=== PATIENT | female | born 1980 | race Caucasian/White ===

== ENCOUNTER 2020-10-02 14:08 | Emergency (ER) | payer OTHER, SELFPAY ==
[2020-10-02 14:09] VITALS: PULSE 73; RESP 16; O2SAT 100
[2020-10-02 14:18] VITALS: BP 124/75; PULSE 72; RESP 16; TEMP 36.9; O2SAT 100
--- NOTE | 2020-10-02 14:19 | ED.ALLEREA ---
HPI - Allergic Reaction General Chief complaint: Allergic Reaction Stated complaint: allegric reaction Time Seen by Provider: 10/02/20 14:10 Source: patient Mode of arrival: ambulatory Limitations: no limitations History of Present Illness HPI narrative: Xi Arvizu is a 40 yo female with no PMH who started on a diet a few days ago and ate almonds felt kind of funny repeated that today and developed some chest tightness, throat tight, itchy, abdominal tightness and nausea. [place] like she needed to throw up after she ate them. Second time in a couple of days had eaten almonds, firts time was nauseated, this time had this reaction. Is a normal prescription for notes with no reaction Related Data Allergies Allergy/AdvReac Type Severity Reaction Status Date / Time No Known Allergies Allergy Unverified 05/01/17 16:44 Review of Systems Review of Systems: Narrative: CONSTITUTIONAL: Denies fever, chills, sweats. Anxious EYES: Denies visual changes, redness, discharge. ENT: Denies rhinorrhea, congestion, sore throat, otalgia. Throat feels tight CARDIOVASCULAR: Denies chest pain, palpitations, edema. RESPIRATORY: Denies dyspnea, wheezing, cough-feels like there is scratchy GASTROINTESTINAL: Denies abdominal pain, nausea, vomiting, diarrhea. GENITOURINARY: Denies dysuria, hematuria, abnormal discharge SKIN: Denies rash or itching. No rash NEUROLOGIC: Denies numbness, or focal weakness. PSYCHIATRIC: Denies anxiety or depression. PMFSH Past Medical History Medical History No acute medical problems Family History Family History Mother Depression Father Hypertension Other Cerebrovascular accident Diabetes mellitus Family history of allergic disorder Family history of elevated blood lipids Family history of malignant neoplasm Social History Social History Smoking status: Current every day smoker Smoking end date: 06/19/08 Alcohol intake: current Comments At time of signature, I agree with nursing past medical, surgical, social and family history. There is no relevant family history pertinent to the presenting complaint. Exam Narrative: Exam Narrative: GENERAL: This is a well-nourished, well-developed patient, in mild distress. HEAD: normocephalic, atraumatic. EYES: Sclera clear/white. Vision is grossly intact. EARS: External ears normal,. Hearing grossly intact. NOSE: External nose normal without nasal discharge, nares without redness, no rhinorrhea. THROAT: Mucous membranes moist, posterior pharynx -no narrowing of airway no lip swelling no lesions in oral mucosa NECK: Neck supple, non-tender CARDIOVASCULAR: Regular rate and rhythm without murmurs, gallops, or rubs. RESPIRATORY: Clear to auscultation. Breath sounds equal bilaterally. No wheezes, rales, or rhonchi. GASTROINTESTINAL: Abdomen soft, SKIN: warm, intact with no suspicious lesions or rash, good texture and turgor. NEURO: awake, alert, and oriented to person, place and time. There were no obvious focal neurologic abnormalities. Steady gait EXTREMITIES: Normal range of motion. BACK: Nontender without deformity Course Course Emergency Course: Patient comes to [facility] with concerns about allergic reaction to almonds that she is eaten an hour prior to starting to feel sick Patient given prednisone, Benadryl, Pepcid. Initial vital signs within normal limits with 100% O2 sats, repeated Now complaining of chest pain - ekg, zofran, and toradol given Vital Signs Vital signs: Vital Signs Pulse Rate 73 10/02/20 14:09 Respiratory Rate 16 10/02/20 14:09 Pulse Oximetry 100 10/02/20 14:09 Temperature 98.5 F 10/02/20 14:18 Pulse Rate 76 10/02/20 15:24 Respiratory Rate 16 10/02/20 14:58 Blood Pressure 115/75 10/02/20 15:24 Pulse Oximetry 100
[2020-10-02] MEDS: predniSONE 20 MG TABLET 60 MG PO (14:26)
[2020-10-02 14:58] VITALS: BP 107/69; PULSE 72; RESP 16; O2SAT 100
[2020-10-02] MEDS: diphenhydrAMINE HCl CAP 25 MG CAPSULE PO (14:58)
[2020-10-02] MEDS: FAMOTIDINE 20 MG TABLET PO (14:58)
[2020-10-02 15:24] VITALS: BP 115/75; PULSE 76; O2SAT 100
--- NOTE | 2020-10-02 16:00 | ECG_ITS ---
Measurements Intervals [place] Rate: 82 P: 34 [place]: 121 QRS: 54 QRSD: 97 T: 60 QT: 393 QTc: 459 Interpretive Statements SINUS RHYTHM INCOMPLETE RIGHT BUNDLE BRANCH BLOCK BASELINE ARTIFACT- II, III, AVF BORDERLINE ECG Electronically Signed On 10-03-2020 8:34:11 CDT by Montrell Bustos D.O.
--- NOTE | 2020-10-02 16:00 | PC.NURSE ---
ekg done at 1558.
--- NOTE | 2020-10-02 16:01 | PC.NURSE ---
1548 upon dc stated upper chest was hurting more. this rn and job coaching at bedside. job coaching ordered ekg, zofran, and toradol. moved to rm 1.
[2020-10-02] MEDS: ONDANSETRON HCL ODT 4 MG TABLET PO (16:09)
[2020-10-02] MEDS: KETOROLAC (*BKC) 60 MG/2 ML VIAL IM (16:09)
--- NOTE | 2020-10-02 16:45 | PC.NURSE ---
was reassessed at 1630 and stated no difference since medication. cont. to have intermittent abd. cramping and upper chest discomfort. bp 119/69, hr 72, pulse ox 100%ra, resp 16 and nonlabored.
== END 2020-10-02 16:50 | disposition home or self-care (01) ==
PROVIDERS: Emergency Provider Nurse Practitioner
DX: T78.1XXA Other adverse food reactions, not elsewhere classified, initial encounter (principal); R07.89 Other chest pain; R10.9 Unspecified abdominal pain; R11.0 Nausea; I45.10 Unspecified right bundle-branch block
CPT/HCPCS: 93005; 96372; 99213; A9270; G0463; J1885; J7512

== ENCOUNTER 2022-07-13 05:01 | Emergency (ER) | payer OTHER, SELFPAY ==
--- NOTE | ~2022-07-13 | XR_ITS ---
Clinical Indication: Shortness of breath, cough PA and lateral views of the chest: Comparison: 03/25/2016 Findings: The lungs are clear, without evidence of focal consolidation or pleural effusion. Cardiome diastinal silhouette is within normal limits. Bones and soft tissues are unremarkable. Impression: Normal chest. Reviewed, dictated and finalized at location . TOP BOLTER Impression: Normal chest.
[2022-07-13 05:04] VITALS: BP 118/72; PULSE 116; RESP 18; TEMP 37.7; O2SAT 99
--- NOTE | 2022-07-13 05:21 | ED.GENADULT ---
HPI - General Adult General Chief complaint: Upper Respiratory Infection <James Kothari MD - Last Filed: 07/13/22 06:43> Stated complaint: cough <James Kothari MD - Last Filed: 07/13/22 06:43> Time Seen by Provider: 07/13/22 05:13 <James Kothari MD - Last Filed: 07/13/22 06:43> History of Present Illness HPI narrative: Patient is a 42-year-old female who presents ER with cough and burning when she breathes and to her chest. She reports that she has been sick for 2 weeks. Started off with sinus congestion and sore throat. It then moved into her chest. She reports everybody in her house had influenza the time. She reports she coughed up some blood and something that was dark earlier. No sharp pleuritic pain with breathing. Concerned she may have developed pneumonia. Patient also concerned that she has a hoarse voice related to this.. <James Kothari MD - Last Filed: 07/13/22 06:43> Related Data Allergies/adverse reactions: Allergies Allergy/AdvReac Type Severity Reaction Status Date / Time No Known Allergies Allergy Unverified 07/13/22 05:07 <James Kothari MD - Last Filed: 07/13/22 06:43> Review of Systems Review of Systems: All systems reviewed & are unremarkable except as noted in HPI and below <James Kothari MD - Last Filed: 07/13/22 06:43> Constitutional: Constitutional: Reports chills, Reports fatigue and Reports fever(s) <James Kothari MD - Last Filed: 07/13/22 06:43> ENT: Reports nasal congestion and Reports sore throat <James Kothari MD - Last Filed: 07/13/22 06:43> Cardiovascular: Cardiovascular: Denies chest pain, Denies rapid heart rate and Denies radiating jaw, neck or arm pain <James Kothari MD - Last Filed: 07/13/22 06:43> Respiratory: Respiratory: Reports cough, Reports dyspnea and Denies wheezing <James Kothari MD - Last Filed: 07/13/22 06:43> Gastrointestinal: Gastrointestinal: Denies abdominal pain, Denies nausea and Denies vomiting <James Kothari MD - Last Filed: 07/13/22 06:43> PMFSH Past Medical History Medical History: Medical History (Updated 07/13/22 @ 07:38 by Leland Paez MD) Anxiety Kidney stones <James Kothari MD - Last Filed: 07/13/22 06:43> Surgical History Surgical History: Surgical History (Updated 07/13/22 @ 05:24 by James Kothari MD) History of umbilical hernia repair <James Kothari MD - Last Filed: 07/13/22 06:43> Family History Family History: Family History Mother Depression Father Hypertension Other Cerebrovascular accident Diabetes mellitus Family history of allergic disorder Family history of elevated blood lipids Family history of malignant neoplasm <James Kothari MD - Last Filed: 07/13/22 06:43> Social History Social History: Social History Smoking status: Current every day smoker Smoking end date: 06/19/08 Alcohol intake: current <James Kothari MD - Last Filed: 07/13/22 06:43> Exam Narrative: GENERAL: Well-appearing, well-nourished, and in no acute distress. HEAD: Normocephalic, atraumatic. ENT: Mucous membranes moist. TMs normal bilaterally. No tonsillar hypertrophy or exudate. Uvula midline and nonedematous. CHEST: Clear to auscultation. No respiratory distress. HEART: Tachycardic regular. Normal peripheral pulses. EXTREMITIES: Normal range of motion. No edema. NEURO: Alert and oriented x3. PSYCH: Normal mood and affect. <James Kothari MD - Last Filed: 07/13/22 06:43> Course Reevaluation(s) Reevaluation #1: Tachycardia improved with fluids. Patient also given GI cocktail for burning in her throat and Toradol for headache. Patient amenable to COVID/flu testing at this time so will be performed. Additionally patient is requesting a breathing treatment. <Seferino
[2022-07-13] MEDS: SODIUM CHLORIDE 0.9% IV 1,000 ML 999 ML IV CONT (05:33)
[2022-07-13 05:43] LABS: Basophils Percent Auto 0.4 % (0.2-1.2); Eosinophils Percent Auto 0.2 % (0-4.4); Hematocrit 38.3 % (37.0-47.0); Hemoglobin 12.8 g/dL (12.0-15.0); Immature Granulocyte Absolute 0.01 K/mm3 (0.00-0.031); Immature Granulocyte Percent A 0.2 % (0-0.5); Lymphocytes Percent Auto 10.5 % (18.3-44.2); Mean Corpuscular HGB Conc 33.4 g/dl (32-36); Mean Corpuscular Hemoglobin 30.2 pg (26-34); Mean Corpuscular Volume 90.3 fl (80-100); Mean Platelet Volume 10.2 fl (7.4-10.4); Monocytes Absolute Auto 0.7 K/mm3 (0.1-0.6); Monocytes Percent Auto 14.7 % (2.6-8.5); Neutrophils Absolute Auto 3.5 K/mm3 (1.3-6.7); Platelet Count Result 188 k/mm3 (150-375); Red Blood Count 4.24 M/mm3 (4.2-5.4); Red Cell Distribution Width 13.3 % (11.5-14.5); White Blood Count 4.8 K/mm3 (4.5-10.0)
[2022-07-13 05:47] LABS: Appearance Urine Clear (Clear); Bilirubin Urine Negative (Negative); Blood Urine Negative (Negative); Color Urine Yellow (Yellow); Glucose Urine UA Negative (Negative); Ketones Urine Negative (Negative); Leukocyte Esterase Ur Negative LEU/UL (Negative); Nitrate Urine Negative (Negative); Protein Urine 1+ mg/dL (Negative); Urobilinogen Urine 0.2 mg/dL (<2.0)
[2022-07-13 05:52] LABS: Mucus Urine Rare /lpf; RBC Urine 0-2 /hpf (0-2); Squamous Epithelial Cell Urine Few /hpf (Few)
[2022-07-13 05:53] LABS: Anion Gap 6 mmol/L (8-16); Blood Urea Nitrogen 11 mg/dL (7-17); Calcium 8.4 mg/dL (8.4-10.2); Carbon Dioxide 24 mmol/L (22-30); Chloride 109 mmol/L (98-107); Estimated CRCL calculation 78 ml/min; Estimated Glomerular Filt Rate > 60; Glucose 98 mg/dL (65-110); Lactic Acid Reflex 0.7 mmol/L (0.7-2.0); Potassium 3.9 mmol/L (3.4-5.0); Sodium 139 mmol/L (137-145)
[2022-07-13 05:54] LABS: Add Urine Microscopic? YES
[2022-07-13] MEDS: BELLADONNA ALK/PHENOB ELIX 10 ML, MAG HYDROX/ALUMINUM HYD/SIMETH 30 ML, LIDOCAINE HCL 2... PO (06:10)
[2022-07-13] MEDS: KETOROLAC 30 MG/ML VIAL (*BKC) IV PUSH (06:10)
[2022-07-13 06:17] VITALS: BP 123/75; O2SAT 100
[2022-07-13 06:32] VITALS: BP 117/76; O2SAT 97
[2022-07-13] MEDS: IPRATROPIUM BR 0.02% INH SOLN 0.5 MG/2.5 ML VIAL INHALATION (07:04)
[2022-07-13] MEDS: ALBUTEROL SULFATE NEB 2.5 MG/3 ML INH 5 MG INHALATION (07:04)
[2022-07-13 07:06] VITALS: PULSE 84; RESP 20
[2022-07-13 07:28] VITALS: PULSE 112; RESP 20
[2022-07-13 07:31] LABS: Influenza A QL RT-PCR Negative (Negative); Influenza B QL RT-PCR Negative (Negative); SARS-CoV-2 RNA PCR Positive
[2022-07-13] MEDS: ACETAMINOPHEN 500 MG TABLET 1000 MG PO (07:37)
[2022-07-13 07:47] VITALS: BP 114/68; PULSE 108; RESP 16; O2SAT 100
== END 2022-07-13 07:49 | disposition home or self-care (01) ==
PROVIDERS: Emergency Provider Emergency Medicine; PCP Family Medicine
DX: U07.1 COVID-19 (principal); F41.9 Anxiety disorder, unspecified
CPT/HCPCS: 36415; 71046; 80048; 81001; 83605; 85025; 87636; 94640; 96361; 96374; 99284; A9270; J1885; J7030

== ENCOUNTER 2023-05-03 12:45 | Outpatient (CLI) | payer OTHER, SELFPAY ==
--- NOTE | ~2023-05-03 | MMUS_ITS ---
EXAMINATION: MM diagnostic roberto BI w warner, US breast LT limited HISTORY: Left breast pain TECHNIQUE: Craniocaudal, mediolateral, and mediolateral oblique 3-D tomosynthesis images of the breas ts were performed and synthetic 2-D images were generated. CAD analysis was submitted and interpreted . High resolution limited left breast ultrasound was performed. COMPARISON: None, baseline BREAST PARENCHYMAL COMPOSITION: The breasts are heterogeneously dense, which may obscure small masses . FINDINGS: MAMMOGRAPHIC FINDINGS: No suspicious mass, calcification, or architectural distortion are identified in either breast to sug gest malignancy. No mammographic correlate is identified for the patient's reported left breast pain. ULTRASOUND: No sonographic correlate is identified for the patient's reported left breast pain. No abscess is izabella ntified. IMPRESSION: 1. No specific mammographic or sonographic correlate is identified for the patient's left breast pain . Further evaluation at this time should be based on clinical assessment. Continued follow-up physica l examination is recommended. 2. Recommend routine screening mammography in one year. BI-RADS Category 1: Negative Reviewed, dictated and finalized at location A. SUPPORT TECHNICIAN IMPRESSION: 1. No specific mammographic or sonographic correlate is identified for the hernandez ent's left breast pain. Further evaluation at this time should be based on clin ical assessment. Continued follow-up physical examination is recommended. 2. Recommend routine screening mammography in one year. BI-RADS Category 1: Negative
== END 2023-05-03 12:46 | disposition home or self-care (01) ==
LOC: ANHIMG 12:48
PROVIDERS: Visit Provider Obstetrics & Gynecology
DX: N64.4 Mastodynia (principal)
CPT/HCPCS: 76642; 77062; 77066; G0279

== ENCOUNTER 2024-01-14 21:19 | Emergency (ER) | payer OTHER, SELFPAY ==
--- NOTE | ~2024-01-14 | XR_ITS ---
XR chest 2V Ordering provider: Suresh Salinas MD History: 43 years Female with . chest pain . Comparison: July 13, 2022 FINDINGS: MEDIASTINUM: The cardiac silhouette is not enlarged. LUNGS: No infiltrates, effusions or pneumothorax. OTHER: No free air under the diaphragm. IMPRESSION: No acute cardiopulmonary pathology Reviewed, dictated and finalized at location A.
--- NOTE | 2024-01-14 21:23 | ECG_ITS ---
Test Date: 2024-01-14 21:30:42 Measurements Intervals [place] Rate: 88 P: 52 SD: 104 QRS: 23 QRSD: 101 T: 44 QT: 375 QTc: 456 Interpretive Statements SINUS RHYTHM INCOMPLETE RIGHT BUNDLE BRANCH BLOCK BASELINE ARTIFACT- II, III, AVR, AVL, AVF, V2 BORDERLINE ECG No previous ECG available for comparison Electronically Signed On 01-15-2024 06:12:25 CDT by Montrell Bustos D.O.
[2024-01-14 21:24] VITALS: BP 140/88; PULSE 82; RESP 15; TEMP 36.6; O2SAT 100
--- NOTE | 2024-01-14 21:32 | ED.CHESTPAIN ---
HPI - Chest Pain General Chief Complaint: Chest Pain Stated Complaint: chest pain and left arm pain, nausea, chills Time Seen by Provider: 01/14/24 21:30 Source: patient Mode of arrival: ambulatory Limitations: no limitations History of Present Illness HPI narrative: Xi is a 43-year-old female patient presenting to the ER today with complaint midsternal chest pain that comes and goes, left arm pain, nausea, and chills. She reports that she has been dry heaving. symptoms started 2-3 hours prior to arrival. States the chest discomfort is a pressure like pain and the arm pain is sharp and in the shoulder and scapula. She denies lifting anything heavy or working out recently. Denies any URI symptoms or cough. Denies GERD symptoms. Patient does have a history of anxiety. No cardiac history. Related Data Allergies Allergy/AdvReac Type Severity Reaction Status Date / Time No Known Allergies Allergy Verified 01/14/24 21:19 Review of Systems Review of Systems: Pertinent positives per HPI. Patient denies any fever, chills, rash, headache, visual changes, dizziness, cough, runny nose, sore throat, shortness of breath, chest pain, palpitations, nausea, vomiting, diarrhea, constipation, abdominal pain, or any urinary issues. PMFSH Past Medical History Medical History Anxiety Kidney stones Surgical History Surgical History History of umbilical hernia repair Family History Family History Mother Depression Father Hypertension Other Cerebrovascular accident Diabetes mellitus Family history of allergic disorder Family history of elevated blood lipids Family history of malignant neoplasm Social History Social History Smoking status: Current every day smoker Smoking end date: 06/19/08 Alcohol intake: current Comments At the time of my signature, I reviewed and agree with the nursing past medical, surgical, social, and family history. There is no relevant family history pertinent to the patient complaint. Exam Narrative: General: Well-developed, well nourished, in no apparent distress Head: Normocephalic, atraumatic. Cardio: Regular rate and rhythm, s1 and s2 normal, no murmur appreciated. Resp: Clear to auscultation bilaterally, no rhonchi, rales, wheezing or rubs. Extremities: No deformity, no edema, no cyanosis, capillary refill less than 2 seconds, peripheral pulses palpable and strong. Integumentary: [place], warm, and dry, intact without lesion, no rashes. Course Course Emergency Course: Portions of this record may have been created with voice recognition software. Vital Signs Vital signs: Vital Signs Temperature 36.6 C 01/14/24 21:24 Pulse Rate 82 01/14/24 21:24 Respiratory Rate 15 01/14/24 21:24 Blood Pressure 140/88 01/14/24 21:24 Pulse Oximetry 100 01/14/24 21:24 Oxygen Delivery Room Air 01/14/24 21:24 Temperature 36.6 C 01/14/24 21:24 Pulse Rate 82 01/14/24 21:24 Respiratory Rate 15 01/14/24 21:24 Blood Pressure 140/88 01/14/24 21:24 Pulse Oximetry 100 01/14/24 21:24 Oxygen Delivery Room Air 01/14/24 21:24 Vital signs reviewed MDM - Chest Pain MDM Narrative Medical decision making narrative: At the time of visit patient is resting comfortably on the exam table. Patient appears to be nontoxic. EKG: EKG shows sinus rhythm with an incomplete right bundle-branch block heart rate 88 beats per minute. No ST elevation, depression, or T-wave inversion. Repeat EKG shows no acute changes Labs: CBC shows white blood cell count of 8.5, H and H of 13.9 and 40.8, platelet count is 285, anticoagulation states within normal limits, chemistry shows sodium 136, potassium of 3.2, chloride 101, carbon dioxi
[2024-01-14 21:43] LABS: Basophils Absolute Auto 0.1 K/mm3 (0.0-0.1); Basophils Percent Auto 0.7 % (0.2-1.2); Eosinophils Absolute Auto 0.2 K/mm3 (0-0.3); Eosinophils Percent Auto 2.5 % (0-4.4); Hematocrit 40.8 % (37.0-47.0); Hemoglobin 13.9 g/dL (12.0-15.0); Immature Granulocyte Absolute 0.02 K/mm3 (0.00-0.031); Immature Granulocyte Percent A 0.2 % (0-0.5); Lymphocytes Percent Auto 31.8 % (18.3-44.2); Mean Corpuscular HGB Conc 34.1 g/dl (32-36); Mean Corpuscular Hemoglobin 30.2 pg (26-34); Mean Corpuscular Volume 88.7 fl (80-100); Mean Platelet Volume 10.2 fl (7.4-10.4); Monocytes Absolute Auto 0.5 K/mm3 (0.1-0.6); Monocytes Percent Auto 6.2 % (2.6-8.5); Neutrophils Percent Auto 58.6 % (45.5-73.1); Platelet Count Result 285 k/mm3 (150-375); Red Cell Distribution Width 13.2 % (11.5-14.5); White Blood Count 8.5 K/mm3 (4.5-10.0)
[2024-01-14 21:55] LABS: Alanine Aminotransferase 22 U/L (6-35); Albumin Level 4.7 g/dL (3.5-5.1); Alkaline Phosphatase 68 U/L (38-126); Anion Gap 10 mmol/L (4-12); Aspartate Amino Transferase 24 U/L (14-36); Bilirubin,Total 0.4 mg/dL (0.2-1.3); Blood Urea Nitrogen 13 mg/dL (7-17); Calcium 10.2 mg/dL (8.4-10.2); Carbon Dioxide 25 mmol/L (22-30); Chloride 101 mmol/L (98-107); Estimated CRCL calculation 70 ml/min; Estimated Glomerular Filt Rate > 60; Glucose 93 mg/dL (65-110); INR 0.9; Lipase 175 U/L (23-300); Potassium 3.2 mmol/L (3.4-5.0); Prothrombin Time 12.8 Seconds (11.1-14.7); Sodium 136 mmol/L (137-145)
[2024-01-14 21:56] LABS: Partial Thromboplastin Time 25.4 Seconds (22.3-36.8)
[2024-01-14] MEDS: ONDANSETRON INJ 4 MG/2 ML VIAL IV PUSH (22:03)
[2024-01-14 22:06] LABS: Troponin I < 0.012 ng/mL (0.000-0.034)
[2024-01-15] MEDS: POTASSIUM CHLORIDE 20 MEQ PACKET (FOR LIQUID) 40 MEQ PO (00:03)
[2024-01-15] MEDS: ONDANSETRON INJ 4 MG/2 ML VIAL IV PUSH (00:49)
[2024-01-15 01:06] LABS: Troponin I < 0.012 ng/mL (0.000-0.034)
--- NOTE | 2024-01-15 01:19 | ECG_ITS ---
Test Date: 2024-01-15 01:13:19 Measurements Intervals [place] Rate: 78 P: 0 [place]: 146 QRS: 36 QRSD: 94 T: 31 QT: 365 QTc: 416 Interpretive Statements SINUS RHYTHM INCOMPLETE RIGHT BUNDLE BRANCH BLOCK BORDERLINE ECG Compared to ECG 01/14/2024 21:30:42 NO SIGNIFICANT CHANGE Electronically Signed On 01-15-2024 06:11:35 CDT by Montrell Bustos D.O.
[2024-01-15 01:31] VITALS: BP 120/76; PULSE 80; RESP 19; O2SAT 99
== END 2024-01-15 01:45 | disposition home or self-care (01) ==
PROVIDERS: Student in an Organized Health Care Education/Training Program; Emergency Provider Nurse Practitioner Family
DX: R07.89 Other chest pain (principal); F41.9 Anxiety disorder, unspecified; E87.6 Hypokalemia; Z87.442 Personal history of urinary calculi
CPT/HCPCS: 36415; 71046; 80053; 83690; 84484; 85025; 85610; 85730; 93005; 96374; 96375; 99284; A9270; J2405

== ENCOUNTER 2024-10-25 12:52 | Outpatient (CLI) | payer OTHER, SELFPAY ==
--- NOTE | ~2024-10-25 | CT_ITS ---
Non-contrast CT scan of the Abdomen Clinical indication: Periumbilical pain Technique: 2.5 mm axial scans were obtained through the abdomen without intravenous or oral contrast . Dose reduction technique was used on this scan by utilizing automated exposure control and iterativ e reconstruction technique. The dose-length product (DLP) was 249.44 mGy-cm. COMPARISON: 04/03/2017 Findings: Images through the lung bases reveal stable 4 mm left basilar pulmonary nodule. There is no evidence of renal or ureteral calculi. The kidneys and the ureters are nondilated. The liver, spleen, pancreas, gallbladder, and adrenals appear normal. There is no aortic aneurysm. Visualized bowel loops are unremarkable. No ascites. Impression: Unremarkable exam. Reviewed, dictated and finalized at location . Impression: Unremarkable exam.
--- OUTSIDE RECORDS SUMMARY | 2024-10-25 12:55 | XMS_ITS | Continuity of Care Document ---
Author Organization [facility] Address [address] [place] [address] [place] [address] Phone Care Team Providers Care Ribbon Hand Name Role Phone Loy De Dios MD Unavailable Unavailable Allergies, Adverse Reactions, Alerts Substance Reaction Status Criticality No Known Allergies Active No Inform ation Medications Medication Instructions Dosage Effective Dates (start - stop) Status Comments diclofenac sodium 75 mg tablet,delayed release take 1 tablet by oral route 2 times every day 75 MG - Active Procedures Procedure Date OFFICE/OUTPATIENT VISIT, [facility] PREV VISIT, NEW, AGE 18-39 OFFICE/OUTPATIENT VISIT, [facility] Advance Directives Directive Yes / No Effective Date File Name No Information Encounters Encounter Description Practice Location Reason(s) For Visit Diagnoses Date Provider Providers Copied on Encounter [facility], [address] [place], [place], [id number], tel:[phone] [facility] No Information [address] Lanre Granado. [address] [facility] [place], [id number] , [place]. tel:[phone] Referring Provider: Loy De Dios, [address], [place], [place], [id number]. tel:[phone] OFFICE/OUTPA TIENT VISIT, EST [facility], [address] [place], [id number], tel:[phone] [facility] back pain1 (chief complaint) Sacroiliitis, not elsewhere classifiedLumbagoPa resthesia of skin 8 Lanre Granado. [address], [place], [place], [id number] , [place]. tel:[phone] Referring Provider: Loy De Dios, [address], [place], [place], [id number]. tel:[phone] PREV VISIT, NEW, AGE 18-39 [facility], [address], [place], [place], [id number], [place] tel:[phone] [facility] Physical (chief complaint) Encounter for general adult medical exam w abnormal findingsSacroiliiti s, not elsewhere classifiedLumbago 201 [address] Lanre Granado. [address], [place], [place], [id number] , [place]. tel:[phone] Referring Provider: Loy De Dios, [address], [place], [place], [id number]. tel:[phone] Family History Family Member Type Diagnosis Age At Onset Father Problem (finding) Hypertension Brother Problem (finding) Alive and well Mother Problem (finding) Depression Payers Payer name Insurance type Covered green party ID Authoriza tion(s) No Information Social History Type Description Quantity Date Captured Comments Alcohol Use Details Unknown Caffeine Use Details Unknown Tobacco Use Status No Information Smoking Status No Information Sex Female Chief Complaint And Reason For Visit No Information Plan Of Treatment Date Type Action Status Referral Ordered: LUMBAR XRAY AP AND LAT ONLY ordered History Of Present Illness Encounter Date Complaint History Of Prese nt Illness back pain1 Pt has chronic l ow back pain. Pt has bilateral sciatica and bilateral leg numbness intermittently. Pt has sacroiliitis. Pt denies any injury Pt did play sports back in high school. Pt states that she takes a lot of ibuprofen daily for pain Pt denies any loss of bladder control. Pt had lab done which is all normal. Pt does not have any active rheumatological disease. Pt does have any signs of ankylosis spondylitis. Pt could not afford x rays so she has not done the x ray yet. Pt denies any constipation, diarrhea, or any blood in stool. Pt denies any GI issue. Pt denies any weight loss. Pt also has stiffness around neck and T spine area as well. PT denies any other joint pain. Pt states that leg and foot numbness are intermittent, not constant Physical Pt needs annual physical. Pt has chronic low back pain with radiating to both legs and both leg feels numb sometimes. Pt has sharp and dull pain. Pt denies any loss of bladder control. pt has neck pain as well. Pt recently had hernia surgery and Ct scan of abdomen showed left side sacroiliitis. Pt was told by surgeon that she needs to follow up with PCP to rule out other connective tissue disease. Pt denies any other complaints Instructions Date Instruction Additional Infor shaylee Increase physical activity Relat ed to Sacroiliitis, not elsewhere classified Increase physical activity Relat ed to Encounter for general adult medical exam w abnormal findings Assessments Type Assessment Date No Information
--- OUTSIDE RECORDS SUMMARY | 2024-10-25 12:55 | XMS_ITS | Clinical Summary ---
Author Organization [facility] Address [address] [place] [address] Care Team Providers Care Dental Equipment Installer And Servicer Name Role Phone Unavailable Primary Care Provider Unavailabl e Source Comments [facility],non-owned Affiliates and Associated Physician Practices is amultiple site organization consisting of ambulatory clinics and hospital sitesin [place], [place], [place] and [place]. This disclosure is being madepursuant to the Care Everywhere program and may not contain all information available regarding this patient. Last updated 18.[facility] Medications * Be aware that medications may not be up to date on this document. Alwaysverify current medications with the patient. norgestrel-ethin yl estradiol (LOW-OGESTREL) 0.3-30 MG-MCG tablet Take 1 tablet by mouth DAILY. 6 07/21/2017 Active aspirin (ASPIRIN) 325 MG tablet Take 325 mg by mouth q6h PRN (Pain). 07/27/2017 Active Active Problems Problem Noted Date Diagnosed Date Other specified soft tissue disorders 07/27/2017 Pain of left arm 07/27/2017 Phlebitis and thrombophlebitis of other sites Family History Medical History Relation Name Comments CAD (Coronary Artery Disease) Maternal Grandmother CAD (Coronary Artery Disease) Paternal Grandfather CVA Paternal Grandfather Diabetes Paternal Grandfather Cancer - Other Paternal Grandmother Relation Name Status Comments Maternal Grandmother Paternal Grandfather Paternal Grandmother Social History Tobacco Use Types Packs/Day Years Used Date Smoking Tobacco: Every Day Smokeless Tobacco: Never Comments Unknown Sex and Gender Information Value Date Recorded Sex Assigned at Not on file Legal Sex Female 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 FILLER OPERATOR Gender Identity Not on file Sexual Orientation Not on file Last Filed Vital Signs Vital Sign Reading Time Taken Comments Blood Pressure 122/82 07/27/2017 8:23 AM BACK FILLER OPERATOR Pulse 73 07/27/2017 8:23 AM BACK FILLER OPERATOR Temperature 37 C (98.6 F) 07/27/2017 8:23 AM BACK FILLER OPERATOR Respiratory Rate - - Oxygen Saturation 99% 07/27/2017 8:23 AM BACK FILLER OPERATOR Inhaled Oxygen Concentration - - Weight 66.2 kg (146 lb) 07/27/2017 8:23 AM BACK FILLER OPERATOR Height 170.2 cm (5' 7 ) 07/27/2017 8:23 AM BACK FILLER OPERATOR Body Mass Index 22.87 07/27/2017 8:23 AM BACK FILLER OPERATOR Plan of Treatment Health Maintenance Due Date Last Done Comments LIPID TESTING 1981 MAMMOGRAM 1981 HIV SCREENING 1996 HEPATITIS C SCREENING 06/11/1999 DTAP/TDAP/TD VACCINES (1 - Tdap) 2000 HEPATITIS B VACCINE (1 of 3 - 19+ 3-dose series) 2000 COVID-19 VACCINE ( - 2023-2 5 season) 2024 DEPRESSION SCREENING 06/19/2024 INFLUENZA VACCINE (Season Ended) 2025 ZOSTER VACCINE (1 of 2) 2031 HIB VACCINE Aged Out No longer eligi ble based on patient's age to complete this topic HPV VACCINE Aged Out No longer eligi ble based on patient's age to complete this topic MENINGOCOCCAL (Group B) VACC INE SHARED DECISION-MAKING Aged Out No longer eligibl e based on patient's age to complete this topic MENINGOCOCCAL GROUPS A/C/Y/W VACCINE Aged Out No longer eligible b ased on patient's age to complete this topic PNEUMOCOCCAL VACCINE Aged Out No long er eligible based on patient's age to complete this topic
--- OUTSIDE RECORDS SUMMARY | 2024-10-25 12:55 | XMS_ITS | Clinical Summary ---
Author Organization [facility] Address [address] [place] [address] Care Team Providers Care Job Putter Up And Ticket Preparer Name Role Phone No, Physician Primary Care Provider [phone] Allergies Active Allergy Reactions Criticality Noted Date Comments Latex Rash Medium 08/23/2024 Active Problems Problem Noted Date Diagnosed Date Visual disturbance 06/30/2014 Overview (09/29/2016): Visual disturbance Palpitations 06/30/2014 Overview (09/29/2016): Palpitations Abnormal echocardiography 06/30/2014 Overview (09/29/2016): Abnormal echocardiogram Chest pain 06/30/2014 Overview (09/29/2016): Chest pain Anxiety 06/30/2014 Overview (09/29/2016): Anxiety Encounters Date Type Department Care Team Description 08/23/2024 9:59 PM TEXTILE SCREEN MAKER - 08/23/2024 10:00 PM TEXTILE SCREEN MAKER Emergency [facility] Emergency Department [address] [place] [address] Sarah Mcnair MD Migraine with aura and without status migrainosus, not intractable (Primary Dx) Discharge Disposition: Discharge to home or self care from Last 3 Months Medical History Medical History Date Comments Hx Other Medical Headache, migra ine Hx Other Medical chronic low cynthia k; Comments: ELU 06/30/2014 - Family History Medical History Relation Name Comments Hypertension Father Hypertension; Other Father heart murmur re q FU; Depression Mother Depression; Relation Name Status Comments Father Mother Social History Tobacco Use Types Packs/Day Years Used Date Smoking Tobacco: Former Alcohol Use Standard Drinks/Week Comments Yes 0 (1 standard drink = 0.6 oz pur e alcohol) Personal Safety Answer Date Recorded Have you ever been in or are you currently in a harmful physical or emotional relationship or is someone making you feel afraid or unsafe? Denies 08/23/2024 Comments Unknown Sex and Gender Information Value Date Recorded Sex Assigned at Not on file Legal Sex Female 7:58 AM TEXTILE SCREEN MAKER Gender Identity Not on file Sexual Orientation Not on file Obstetrics History Last Filed Vital Signs Vital Sign Reading Time Taken Comments Blood Pressure 108/74 08/23/2024 8:50 PM TEXTILE SCREEN MAKER Pulse 82 08/23/2024 8:50 PM TEXTILE SCREEN MAKER Temperature 36.5 C (97.7 F) 08/23/2024 6:19 PM TEXTILE SCREEN MAKER Respiratory Rate 18 08/23/2024 8:50 PM TEXTILE SCREEN MAKER Oxygen Saturation 96% 08/23/2024 8:50 PM TEXTILE SCREEN MAKER Inhaled Oxygen Concentration - - Weight 72.6 kg (160 lb) 08/23/2024 6:19 PM TEXTILE SCREEN MAKER Height 170.2 cm (5' 7 ) 08/23/2024 6:19 PM TEXTILE SCREEN MAKER Body Mass Index 25.06 08/23/2024 6:19 PM TEXTILE SCREEN MAKER Plan of Treatment Health Maintenance Due Date Last Done Comments Breast Cancer Screening-Mammogram 1981 Cervical Cancer Screening 1981 Depression Screening 1981 Hepatitis C Screening 1981 DTaP/Tdap/Td Vaccine (1 - Tdap) 1992 Varicella Vaccines (1 of 2 - 13+ 2-dose series) 1994 Hepatitis B Screening 1999 Regular Well Visit/Exam 18-64 1999 Pneumococcal vaccine <65 (1 of 2 - PCV) 2000 Influenza Vaccine (Season Ended) 2025 HPV Vaccines Aged Out No longer eligi ble based on patient's age to complete this topic Procedures Procedure Name Priority Date/Time Associated Diagnosis Comments ED CRITICAL CARE Routine 08/23/2024 9:29 PM TEXTILE SCREEN MAKER XR CHEST PA LATERAL 2 VIEWS ED 08/23/2024 7:[address] STROKE PROTOCOL WO CONTRAST Critical/Life-T hreatening 08/23/2024 7:05 PM TEXTILE SCREEN MAKER APTT STAT 08/23/2024 7:05 PM TEXTILE SCREEN MAKER EGFR STAT 08/23/2024 6:45 PM TEXTILE SCREEN MAKER DIFFERENTIAL AUTO STAT 08/23/2024 6:4 5 PM TEXTILE SCREEN MAKER TROPONIN I HIGH-SENSITIVITY SERIES (BASELINE, 2HR, 4HR, 6HR) STAT 08/23/2024 6:45 PM TEXTILE SCREEN MAKER CBC WITH AUTO DIFFERENTIAL STAT 08/23/2024 6:45 PM TEXTILE SCREEN MAKER COMPREHENSIVE METABOLIC PANEL STAT 08/23/2024 6:45 PM TEXTILE SCREEN MAKER ECG 12-LEAD STAT 08/23/2024 6:31 PM TEXTILE SCREEN MAKER from Last 3 Months Results * Critical Care (08/23/2024 9:29 PM TEXTILE SCREEN MAKER) Narrative Sarah Mcnair MD - 08/23/2024 9:29 PM TEXTILE SCREEN MAKER Sarah Mcnair MD 08/23/2024 9:30 PM Critical Care Performed by: Sarah Mcnair MD Authorized by: Sarah Mcnair MD Critical care provider statement: As reflected in the history, physical exam, orders, notes, and/or MDM, I was personally present while the patient was critically ill and provided critical care services for 15 minutes, excluding time involved in separately billable procedures. Critical care was necessary to treat or prevent imminent or life-threatening deterioration of the following condition(s): acute cerebrovascular accident (CVA) Critical care was time spent by me providing the following: serial bedside patient exams decision regarding acute lytic therapy decision regarding NPO status acute pain control I provided emergent necessary critical care medicine services to this patient. I ordered and reviewed test results and/or imaging studies. I spent time discussing the management of this critically ill patient with consultants and the medical staff. I spent time discussing the management and therapeutic options for this critically ill patient with the patient themselves or with the appropriate designated surrogate decision-maker. I spent time documenting in the medical record. Sarah Mcnair MD IN CLINIC/BEDSIDE ORDERAB LES Final Result * XR Chest PA Lateral 2 Views (08/23/2024 7:30 PM TEXTILE SCREEN MAKER) Anatomical Region Laterality Modality Body, Chest N/A Computed Radiogr aphy 08/23/2024 7:32 PM TEXTILE SCREEN MAKER Impressions 08/23/2024 8:12 PM TEXTILE SCREEN MAKER No comparison is available. There is no focal consolidation, pleural effusion, or pneumothorax. The cardiomediastinal silhouette is normal. Dictated by: Jim Pizarro MD The radiology attending physician has personally reviewed this study, and had reviewed and/or edited this written report and agrees with it. Electronically signed by: Erwin Romero M.D. Narrative 08/23/2024 8:12 PM TEXTILE SCREEN MAKER EXAMINATION: 2 view chest radiograph Procedure Note Erwin Romero II, MD - 08/23/2024 EXAMINATION: 2 view chest radiograph IMPRESSION: No comparison is available. There is no focal consolidation, pleural effusion, or pneumothorax. The cardiomediastinal silhouette is normal. Dictated by: Jim Pizarro MD The radiology attending physician has personally reviewed this study, and had reviewed and/or edited this written report and agrees with it. Electronically signed by: Erwin Romero M.D. Sarah Mcnair MD IMG XR PROCEDURES Final R esult * CT Stroke Head WO Contrast (08/23/2024 7:05 PM TEXTILE SCREEN MAKER) Anatomical Region Laterality Modality Head N/A Computed Tomogra phy 08/23/2024 7:13 PM TEXTILE SCREEN MAKER Impressions 08/24/2024 9:35 AM TEXTILE SCREEN MAKER 1. Exam is partially degraded by motion but within those limits, and no acute intracranial process. 2. Nonspecific frothy material within the left sphenoid sinus can be seen with sinusitis. Findings were discussed with Dr. Haney by Ethan Gar MD 08/23/2024 at 7:08 PM Dictated by: Ethan Gar MD The radiology attending physician has personally reviewed this study, and had reviewed and/or edited this written report and agrees with it. Electronically signed by: Nancy Huston M.D. Narrative 08/24/2024 9:35 AM TEXTILE SCREEN MAKER EXAMINATION: CT head without contrast HISTORY: Code stroke, right-sided numbness. TECHNIQUE: CT of the head was performed with images acquired from skull base to vertex without intravenous contrast. COMPARISON: 09/08/2004. FINDINGS: There is motion artifact limiting evaluation. There is no acute intracranial hemorrhage. Ventricles are of normal size and morphology. No mass effect or midline shift is present. The thapa-white matter differentiation is normal. The visualized portions of the orbits are normal. The visualized portions of the mastoids are normal. Small amount of frothy material within the left mid sinus. No fractures are identified. There is a partially empty sella. Procedure Note Nancy Huston MD - 08/24/2024 EXAMINATION: CT head without contrast HISTORY: Code stroke, right-sided numbness. TECHNIQUE: CT of the head was performed with images acquired from skull base to vertex without intravenous contrast. COMPARISON: 09/08/2004. FINDINGS: There is motion artifact limiting evaluation. There is no acute intracranial hemorrhage. Ventricles are of normal size and morphology. No mass effect or midline shift is present. The thapa-white matter differentiation is normal. The visualized portions of the orbits are normal. The visualized portions of the mastoids are normal. Small amount of frothy material within the left mid sinus. No fractures are identified. There is a partially empty sella. IMPRESSION: 1. Exam is partially degraded by motion but within those limits, and no acute intracranial process. 2. Nonspecific frothy material within the left sphenoid sinus can be seen with sinusitis. Findings were discussed with Dr. Haney by Ethan Gar MD 08/23/2024 at 7:08 PM Dictated by: Ethan Gar MD The radiology attending physician has personally reviewed this study, and had reviewed and/or edited this written report and agrees with it. Electronically signed by: Nancy Huston M.D. Result [facility] Sarah Mcnair MD IMG CT PROCEDURES Final R esult * aPTT (08/23/2024 7:05 PM TEXTILE SCREEN MAKER) aPTT 32 28 - 38 sec Comment: Interpretive Data Heparin therapeutic range: 66.0 - 100.0 seconds. Range based on correlation with therapeutic heparin activity range of 0.3 - 0.7 Units/mL. Current interpretive data was last revised on 2023. Blood Venous blood specimen / Unknown 08/23/2024 7:05 PM TEXTILE SCREEN MAKER 08/23/2024 8:01 PM TEXTILE SCREEN MAKER Narrative [facility] - 08/23/2024 8:11 PM TEXTILE SCREEN MAKER Potential stroke patient. Result [facility] Sarah Mcnair MD LAB BLOOD ORDERABLES Vicki l Result Performing Organization Address City/[facility] Co de Phone Number [facility] [place] [address] * Troponin I high-sensitivity series (baseline, 2hr, 4hr, 6hr) (08/23/2024 6:45 PM TEXTILE SCREEN MAKER) Pathologist [facility] Trop I hs <4 <=17 ng/L Comment: Interpretive Data For further [facility] resources including the diagnostic algorithm and an aid in interpretation, copy and paste this link: [email or web address] Current Interpretive Data last revised 2019. Blood 08/23/2024 6:45 PM TEXTILE SCREEN MAKER 08/23/2024 6:53 PM TEXTILE SCREEN MAKER Result [facility] Sarah Mcnair MD LAB BLOOD ORDERABLES Vicki l Result Performing Organization Address City/[facility] Co de Phone Number [facility] [place] [address] * eGFR (08/23/2024 6:45 PM TEXTILE SCREEN MAKER) Pathologist [facility] eGFR 81 >=60 mL/min/1. 73 m2 Comment: Interpretive Data Reference Interval Normal >/= 90 mL/min/1.73m2 Mildly decreased* 60 - 89 mL/min/1.73m2 Mildly to moderately decreased 45 - 59 mL/min/1.73m2 Moderately to severely decreased 30 - 44 mL/min/1.73m2 Severely decreased 15 - 29 mL/min/1.73m2 Kidney Failure < 15 mL/min/1.73m2 *Relative to young adult level Estimated glomerular filtration rate is determined by the 2020 CKD-EPI equation recommended by the National Kidney Foundation (A Unifying Approach to GFR Estimation: Recommendations of the NKF-ASK Task Force on Reassessing the Inclusion of Race in Diagnosing Kidney Disease, JASN 2020). The CKD-EPI equation should not be used for patients with unstable renal function and has not been validated in children and those over 70. Current interpretive data was last reviewed 2021. Blood 08/23/2024 6:45 PM TEXTILE SCREEN MAKER 08/23/2024 6:53 PM TEXTILE SCREEN MAKER Sarah Mcnair MD LAB BLOOD ORDERABLES Vicki ríos Result [facility] [place] [address] * Differential, auto (08/23/2024 6:45 PM TEXTILE SCREEN MAKER) [facility] Neutrophil abs 4.2 1.5 - 6.5 K/cumm Imm gran abs 0.0 0.0 - 0.1 K/cumm [facility] Lymphocyte abs 1.6 0.8 - 3.3 K/cumm [facility] Monocyte abs 0.4 0.2 - 0.8 K/cumm [facility] Eosinophil abs 0.1 0.0 - 0.5 K/cumm [facility] Basophil abs 0.0 0.0 - 0.1 K/cumm [facility] Neutrophil pct 66.2 % [facility] Comment: Interpretive Data Percent cell count reference ranges are not reported, since discordance with absolute values may lead to misinterpretation of CBC data. Current Interpretive Data was last revised on 2017. Imm gran pct 0.2 % [facility] Comment: Interpretive Data Percent cell count reference ranges are not reported, since discordance with absolute values may lead to misinterpretation of CBC data. Current Interpretive Data was last revised on 2017. Lymphocyte pct 25.0 % [facility] Comment: Interpretive Data Percent cell count reference ranges are not reported, since discordance with absolute values may lead to misinterpretation of CBC data. Current Interpretive Data was last revised on 2017. Monocyte pct 6.3 % [facility] Comment: Interpretive Data Percent cell count reference ranges are not reported, since discordance with absolute values may lead to misinterpretation of CBC data. Current Interpretive Data was last revised on 2017. Eosinophil pct 1.7 % [facility] Comment: Interpretive Data Percent cell count reference ranges are not reported, since discordance with absolute values may lead to misinterpretation of CBC data. Current Interpretive Data was last revised on 2017. Basophil pct 0.6 % [facility] Comment: Interpretive Data Percent cell count reference ranges are not reported, since discordance with absolute values may lead to misinterpretation of CBC data. Current Interpretive Data was last revised on 2017. Blood 08/23/2024 6:45 PM TEXTILE SCREEN MAKER 08/23/2024 6:53 PM TEXTILE SCREEN MAKER us Sarah Mcnair MD LAB BLOOD ORDERABLES Vicki michoacano Result [facility] Department of Laboratories [place], [place] [id number] * CBC with auto differential (08/23/2024 6:45 PM TEXTILE SCREEN MAKER) WBC 6.4 3.8 - 9.9 K/cumm Hgb 14.7 11.9 - 15.5 g/dL [facility] Hct 42.4 35.6 - 45.5 % [facility] Plt 312 150 - 400 K/cumm [facility] MPV 10.1 9.1 - 12.3 fL [facility] RBC 5.10 3.90 - 5.20 M/cumm [facility] MCV 83.1 81.3 - 96.4 fL [facility] MCH 28.8 27.1 - 33.3 pg [facility] MCHC 34.7 32.3 - 35.7 g/dL [facility] RDW CV 12.8 11.1 - 14.9 % [facility] RDW SD 38.6 35.7 - 48.1 fL [facility] NRBC abs 0.00 0.00 - 0.01 K/cumm [facility] Blood 08/23/2024 6:45 PM TEXTILE SCREEN MAKER 08/23/2024 6:53 PM TEXTILE SCREEN MAKER us Sarah Mcnair MD LAB BLOOD ORDERABLES Vicki l Result [facility] [place] [address] * Comprehensive metabolic panel (08/23/2024 6:45 PM TEXTILE SCREEN MAKER) Sodium 139 135 - 145 mmol/L Potassium, pl 3.6 3.3 - 4.9 mmol/L [facility] Chloride 101 97 - 110 mmol/L [facility] CO2 24 22 - 32 mmol/L [facility] Anion gap 14 2 - 15 mmol/L [facility] BUN 12 6 - 25 mg/dL [facility] Creatinine 0.90 0.60 - 1.10 mg/dL [facility] Glucose 103 70 - 199 mg/dL [facility] Comment: Interpretive Data Fasting glucose >/= 126 mg/dl is diagnostic for diabetes. Fasting is defined as no caloric intake for at least 8 hours. Fasting glucose between 100 mg/dl to 125 mg/dl is diagnostic of prediabetes. In a patient with classic symptoms of hyperglycemia or hyperglycemic crisis, a random glucose >/= 200 mg/dl is diagnostic for diabetes. In the absence of unequivocal hyperglycemia, results should be confirmed by repeat testing. The classification and Diagnosis of Diabetes Diabetes Care 2022; 46: S19-S40. Current interpretive data was last revised 2022. Calcium 9.9 8.5 - 10.3 mg/dL [facility] Bilirubin, total 0.3 0.1 - 1.2 mg/dL [facility] Protein, pl 8.3 6.5 - 8.5 g/dL [facility] Albumin 4.7 3.5 - 5.0 g/dL [facility] Alk phos 65 40 - 130 Units/L [facility] ALT 20 7 - 45 Units/L [facility] AST 23 10 - 45 Units/L [facility] Blood 08/23/2024 6:45 PM TEXTILE SCREEN MAKER 08/23/2024 6:53 PM TEXTILE SCREEN MAKER Sarah Mcnair MD LAB BLOOD ORDERABLES Vicki ríos Result [facility] [place] [address] * ECG 12-LEAD (08/23/2024 6:31 PM TEXTILE SCREEN MAKER) Narrative [facility] - 08/23/2024 6:31 PM TEXTILE SCREEN MAKER Sarah Mcnair MD 08/23/2024 6:33 PM ECG 12 lead Date/Time: 08/23/2024 6:31 PM Performed by: Sarah Mcnari MD Authorized by: Jana Weinstein MD Rate: ECG rate: 110 ECG rate assessment: tachycardic Rhythm: Rhythm: sinus tachycardia Ectopy: Ectopy: none QRS: QRS axis: Normal QRS intervals: Normal Conduction: Conduction: abnormal Abnormal conduction: incomplete RBBB ST segments: ST segments: Normal T waves: T waves: flattening and inverted Flattening: III Inverted: V6 Previous ECG: Previous ECG: Compared to current Date of previous EC06/30/2014 Comparison ECG info: Improved TWI V2 Interpretation: Interpretation: non-specific Recommended Follow-up: Recommended follow up: further workup in the ED Procedure Note Sarah Mcnair MD - 08/23/2024 6:31 PM CST Procedure ECG 12 lead Date/Time: 08/23/2024 6:31 PM Performed by: Sarah Mcnair MD Authorized by: Jana Weinstein MD Rate: ECG rate: 110 ECG rate assessment: tachycardic Rhythm: Rhythm: sinus tachycardia Ectopy: Ectopy: none QRS: QRS axis: Normal QRS intervals: Normal Conduction: Conduction: abnormal Abnormal conduction: incomplete RBBB ST segments: ST segments: Normal T waves: T waves: flattening and inverted Flattening: III Inverted: V6 Previous ECG: Previous ECG: Compared to current Date of previous EC06/30/2014 Comparison ECG info: Improved TWI V2 Interpretation: Interpretation: non-specific Recommended Follow-up: Recommended follow up: further workup in the ED Sarah Mcanir MD 08/23/24 [id number] us Sarah Mcnair MD ECG ORDERABLES Final Res ult [facility] from Last 3 Months [facility] Care Teams Job Putter Up And Ticket Preparer Relationship Specialty Start Date End Date No, Physician PCP - General 08/23/24
--- OUTSIDE RECORDS SUMMARY | 2024-10-25 12:55 | XMS_ITS | Clinical Summary ---
Author Organization [facility] Address [address] [place] [id number] Care Team Providers Care Advertising Layout Worker Name Role Phone None, Provider MD Primary Care Provider Unavaila ble Allergies No known active allergies Medications tiZANidine HCl 4 MG Cap 1 capsule up to three times daily for muscle spasm 30 capsule 10/05/2020 Active omeprazole 20 MG capsule 1 capsule twice daily for 7 days, then 1 capsule daily in AM. Take on empty stomach 30 capsule 10/05/2020 Active Social History Tobacco Use Types Packs/Day Years Used Date Smoking Tobacco: Former Smokeless Tobacco: Former Alcohol Use Standard Drinks/Week Comments Yes 0 (1 standard drink = 0.6 oz pur e alcohol) occassional Comments Unknown Sex and Gender Information Value Date Recorded Sex Assigned at Not on file Legal Sex Female 7:47 PM CDT Gender Identity Not on file Sexual Orientation Not on file Last Filed Vital Signs Vital Sign Reading Time Taken Comments Blood Pressure 122/78 10/05/2020 12:30 AM CDT Pulse 76 10/05/2020 12:30 AM CDT Temperature 36.9 C (98.5 F) 10/05/2020 12:30 AM CDT Respiratory Rate 20 10/05/2020 12:30 AM CDT Oxygen Saturation 99% 10/05/2020 12:30 AM CDT Inhaled Oxygen Concentration - - Weight 65.3 kg (144 lb) 10/04/2020 10:45 PM CDT Height 170.2 cm (5' 7 ) 10/04/2020 10:45 PM CDT Body Mass Index 22.55 10/04/2020 10:45 PM CDT Plan of Treatment Health Maintenance Due Date Last Done Comments Cervical Cancer Screening Pa p Smear (Age 30 to 64) Every 3 Years 1981 Annual Physical 1984 Hepatitis C 1999 DTaP, Tdap and Td Vaccines ( 1 - Tdap) 2000 Hepatitis B Vaccines (1 of 3 - 19+ 3-dose series) 2000 Cervical Cancer Screening Pa p with HPV Testing (Age 30 to 64) Every 5 Years 2011 Cervical Cancer Screening with HPV 2011 Mammogram Screening 2021 COVID-19 Vaccine (1 - 2023-2 5 season) 2024 HPV Vaccines Aged Out No longer eligi ble based on patient's age to complete this topic Meningococcal B Vaccine Aged Out No l onger eligible based on patient's age to complete this topic Meningococcal Vaccine Aged Out No sada heber eligible based on patient's age to complete this topic Pneumococcal Vaccine: Pediat rics (0 to 5 Years) and At-Risk Patients (6 to 49 Years) Aged Out No longer eligible b ased on patient's age to complete this topic RSV Immunizations Under 20 Months Aged Out No longer eligible based on patient's age to complete this topic Insurance [employer] Care Teams Advertising Layout Worker Relationship Specialty Start Date End Date None, Provider, PCP - General 10/04/20
--- OUTSIDE RECORDS SUMMARY | 2024-10-25 12:55 | XMS_ITS | Referral Summary ---
Author Organization [facility] al Address [address] [place] [address] Care Team Providers Care Parachute Manufacturing Supervisor Name Role Phone No, Physician Primary Care Provider [phone] Encounters Date Type Department Care Team Description 08/23/2024 9:59 PM BUSINESS DEVELOPMENT RECRUITER - 08/23/2024 10:00 PM BUSINESS DEVELOPMENT RECRUITER Emergency [facility] Emergency Department [address] [place] [address] Sarah Mcnair MD Migraine with aura and without status migrainosus, not intractable (Primary Dx) Discharge Disposition: Discharge to home or self care from Last 3 Months Allergies Active Allergy Reactions Criticality Noted Date Comments Latex Rash Medium 08/23/2024 Active Problems Problem Noted Date Diagnosed Date Visual disturbance 06/30/2014 Overview (09/29/2016): Visual disturbance Palpitations 06/30/2014 Overview (09/29/2016): Palpitations Abnormal echocardiography 06/30/2014 Overview (09/29/2016): Abnormal echocardiogram Chest pain 06/30/2014 Overview (09/29/2016): Chest pain Anxiety 06/30/2014 Overview (09/29/2016): Anxiety Social History Tobacco Use Types Packs/Day Years [...] on file Legal Sex Female 7:58 AM BUSINESS DEVELOPMENT RECRUITER Gender Identity Not on file Sexual Orientation Not on file Last Filed Vital Signs Vital Sign Reading Time Taken Comments Blood Pressure 108/74 08/23/2024 8:50 PM BUSINESS DEVELOPMENT RECRUITER Pulse 82 08/23/2024 8:50 PM BUSINESS DEVELOPMENT RECRUITER Temperature 36.5 C (97.7 F) 08/23/2024 6:19 PM BUSINESS DEVELOPMENT RECRUITER Respiratory Rate 18 08/23/2024 8:50 PM BUSINESS DEVELOPMENT RECRUITER Oxygen Saturation 96% 08/23/2024 8:50 PM BUSINESS DEVELOPMENT RECRUITER Inhaled Oxygen Concentration - - Weight 72.6 kg (160 lb) 08/23/2024 6:19 PM BUSINESS DEVELOPMENT RECRUITER Height 170.2 cm (5' 7 ) 08/23/2024 6:19 PM BUSINESS DEVELOPMENT RECRUITER Body Mass Index 25.06 08/23/2024 6:19 PM BUSINESS DEVELOPMENT RECRUITER Plan of Treatment Not on file Procedures Procedure Name Priority Date/Time Associated Diagnosis Comments ED CRITICAL CARE Routine 08/23/2024 9:29 PM BUSINESS DEVELOPMENT RECRUITER XR CHEST PA LATERAL 2 VIEWS ED 08/23/2024 7:30 PM BUSINESS DEVELOPMENT RECRUITER CT STROKE PROTOCOL WO CONTRAST Critical/Life-T hreatening 08/23/2024 7:05 PM BUSINESS DEVELOPMENT RECRUITER APTT STAT 08/23/2024 7:05 PM BUSINESS DEVELOPMENT RECRUITER EGFR STAT 08/23/2024 6:45 PM BUSINESS DEVELOPMENT RECRUITER DIFFERENTIAL AUTO STAT 08/23/2024 6:4 5 PM BUSINESS DEVELOPMENT RECRUITER TROPONIN I HIGH-SENSITIVITY SERIES (BASELINE, 2HR, 4HR, 6HR) STAT 08/23/2024 6:45 PM BUSINESS DEVELOPMENT RECRUITER CBC WITH AUTO DIFFERENTIAL STAT 08/23/2024 6:45 PM BUSINESS DEVELOPMENT RECRUITER COMPREHENSIVE METABOLIC PANEL STAT 08/23/2024 6:45 PM BUSINESS DEVELOPMENT RECRUITER ECG 12-LEAD STAT 08/23/2024 6:31 PM BUSINESS DEVELOPMENT RECRUITER from Last 3 Months Results * Critical Care (08/23/2024 9:29 PM BUSINESS DEVELOPMENT RECRUITER) Narrative Sarah Mcnair MD - 08/23/2024 9:29 PM BUSINESS DEVELOPMENT RECRUITER Sarah Mcnair MD 08/23/2024 9:30 PM Critical [...] PA Lateral 2 Views (08/23/2024 7:30 PM BUSINESS DEVELOPMENT RECRUITER) Anatomical Region Laterality Modality Body, Chest N/A Computed Radiogr aphy 08/23/2024 7:32 PM BUSINESS DEVELOPMENT RECRUITER Impressions 08/23/2024 8:12 PM BUSINESS DEVELOPMENT RECRUITER No comparison is available. There is no focal consolidation, pleural effusion, or pneumothorax. The cardiomediastinal silhouette is normal. Dictated by: Jim Pizarro MD The radiology attending physician has personally reviewed this study, and had reviewed and/or edited this written report and agrees with it. Electronically signed by: Erwin Romero M.D. Narrative 08/23/2024 8:12 PM BUSINESS DEVELOPMENT RECRUITER EXAMINATION: 2 view chest radiograph Procedure Note [...] it. Electronically signed by: Erwin Romero M.D. us Sarah Mcnair MD IMG XR PROCEDURES Final R esult * CT Stroke Head WO Contrast (08/23/2024 7:05 PM BUSINESS DEVELOPMENT RECRUITER) Anatomical Region Laterality Modality Head N/A Computed Tomogra phy 08/23/2024 7:13 PM BUSINESS DEVELOPMENT RECRUITER Impressions 08/24/2024 9:35 AM BUSINESS DEVELOPMENT RECRUITER 1. Exam is partially degraded by motion [...] Nancy Huston M.D. Narrative 08/24/2024 9:35 AM BUSINESS DEVELOPMENT RECRUITER EXAMINATION: CT head without contrast HISTORY: Code [...] it. Electronically signed by: Nancy Huston M.D. Sarah Mcnair MD IM CT PROCEDURES Final R esult * aPTT (08/23/2024 7:05 PM BUSINESS DEVELOPMENT RECRUITER) [facility] aPTT 32 28 - 38 sec Comment: Interpretive Data Heparin therapeutic range: 66.0 - 100.0 seconds. Range based on correlation with therapeutic heparin activity range of 0.3 - 0.7 Units/mL. Current interpretive data was last revised on 2023. Blood Venous blood specimen / Unknown 08/23/2024 7:05 PM BUSINESS DEVELOPMENT RECRUITER 08/23/2024 8:01 PM BUSINESS DEVELOPMENT RECRUITER Narrative [facility] - 08/23/2024 8:11 PM BUSINESS DEVELOPMENT RECRUITER Potential stroke patient. Sarah Mcnair MD LAB BLOOD ORDERABLES Vicki l Result [facility] [place] [address] * Troponin I high-sensitivity series (baseline, 2hr, 4hr, 6hr) (08/23/2024 6:45 PM BUSINESS DEVELOPMENT RECRUITER) Trop I hs <4 <=17 ng/L Comment: Interpretive Data For further hscTnI resources including the diagnostic algorithm and an aid in interpretation, copy and paste this link: https://bjhlab.testcatalog.org/show/hsTrop-1 Current Interpretive Data last revised 2019. Blood 08/23/2024 6:45 PM BUSINESS DEVELOPMENT RECRUITER 08/23/2024 6:53 PM BUSINESS DEVELOPMENT RECRUITER Sarah Mcnair MD LAB BLOOD ORDERABLES Vicki l Result Performing Organization Address [facility] Co de Phone Number [facility] [place] [address] * eGFR (08/23/2024 6:45 PM BUSINESS DEVELOPMENT RECRUITER) [facility] eGFR 81 >=60 mL/min/1. 73 m2 Comment: [...] last reviewed 2021. Blood 08/23/2024 6:45 PM BUSINESS DEVELOPMENT RECRUITER 08/23/2024 6:53 PM BUSINESS DEVELOPMENT RECRUITER Sarah Mcnair MD LAB BLOOD ORDERABLES Vicki l Result [facility] [place] [address] * Differential, auto (08/23/2024 6:45 PM BUSINESS DEVELOPMENT RECRUITER) Neutrophil abs 4.2 1.5 - 6.5 K/cumm Imm gran abs 0.0 0.0 - 0.1 K/cumm [facility] Lymphocyte abs 1.6 0.8 - 3.3 K/cumm [facility] Monocyte abs 0.4 0.2 - 0.8 K/cumm [facility] Eosinophil abs 0.1 0.0 - 0.5 K/cumm [facility] Basophil abs 0.0 0.0 - 0.1 K/cumm [facility] Neutrophil pct 66.2 % [facility] Comment: Interpretive Data Percent cell count reference ranges are not reported, since discordance with absolute values may lead to misinterpretation of CBC data. Current Interpretive Data was last revised on 2017. Imm gran pct 0.2 % [facility] Comment: Interpretive Data Percent cell count reference ranges are not reported, since discordance with absolute values may lead to misinterpretation of CBC data. Current Interpretive Data was last revised on 2017. Lymphocyte pct 25.0 % [facility] Comment: Interpretive Data Percent cell count reference ranges are not reported, since discordance with absolute values may lead to misinterpretation of CBC data. Current Interpretive Data was last revised on 2017. Monocyte pct 6.3 % [facility] Comment: Interpretive Data Percent cell count reference ranges are not reported, since discordance with absolute values may lead to misinterpretation of CBC data. Current Interpretive Data was last revised on 2017. Eosinophil pct 1.7 % [facility] Comment: Interpretive Data Percent cell count reference ranges are not reported, since discordance with absolute values may lead to misinterpretation of CBC data. Current Interpretive Data was last revised on 2017. Basophil pct 0.6 % [facility] Comment: Interpretive Data Percent cell count reference ranges are not reported, since discordance with absolute values may lead to misinterpretation of CBC data. Current Interpretive Data was last revised on 2017. Blood 08/23/2024 6:45 PM BUSINESS DEVELOPMENT RECRUITER 08/23/2024 6:53 PM BUSINESS DEVELOPMENT RECRUITER Sarah Mcnair MD LAB BLOOD ORDERABLES Vicki l Result [facility] [place] [address] * CBC with auto differential (08/23/2024 6:45 PM BUSINESS DEVELOPMENT RECRUITER) WBC 6.4 3.8 - 9.9 K/cumm Hgb 14.7 11.9 - 15.5 g/dL [facility] Hct 42.4 35.6 - 45.5 % [facility] Plt 312 150 - 400 K/cumm [facility] MPV 10.1 9.1 - 12.3 fL [facility] RBC 5.10 3.90 - 5.20 M/cumm [facility] MCV 83.1 81.3 - 96.4 fL [facility] MCH 28.8 27.1 - 33.3 pg [facility] MCHC 34.7 32.3 - 35.7 g/dL [facility] RDW CV 12.8 11.1 - 14.9 % [facility] RDW SD 38.6 35.7 - 48.1 fL [facility] NRBC abs 0.00 0.00 - 0.01 K/cumm [facility] Blood 08/23/2024 6:45 PM BUSINESS DEVELOPMENT RECRUITER 08/23/2024 6:53 PM BUSINESS DEVELOPMENT RECRUITER Sarah Mcnair MD LAB BLOOD ORDERABLES Vicki l Result [facility] [place] [address] * Comprehensive metabolic panel (08/23/2024 6:45 PM BUSINESS DEVELOPMENT RECRUITER) Sodium 139 135 - 145 mmol/L Potassium, pl 3.6 3.3 - 4.9 mmol/L [facility] Chloride 101 97 - 110 mmol/L [facility] CO2 24 22 - 32 mmol/L [facility] Anion gap 14 2 - 15 mmol/L [facility] BUN 12 6 - 25 mg/dL [facility] Creatinine 0.90 0.60 - 1.10 mg/dL [facility] Glucose 103 70 - 199 mg/dL [facility] Comment: Interpretive Data Fasting glucose >/= 126 [...] classification and Diagnosis of Diabetes Diabetes Care 202; 46: S19-S40. Current interpretive data was last revised 2022. Calcium 9.9 8.5 - 10.3 mg/dL [facility] Bilirubin, total 0.3 0.1 - 1.2 mg/dL [facility] Protein, pl 8.3 6.5 - 8.5 g/dL [facility] Albumin 4.7 3.5 - 5.0 g/dL [facility] Alk phos 65 40 - 130 Units/L [facility] ALT 20 7 - 45 Units/L [facility] AST 23 10 - 45 Units/L [facility] Blood 08/23/2024 6:45 PM BUSINESS DEVELOPMENT RECRUITER 08/23/2024 6:53 PM BUSINESS DEVELOPMENT RECRUITER Sarah Mcnair MD LAB BLOOD ORDERABLES Vicki l Result Performing Organization Address [facility]/ZIP Co de Phone Number [facility] [place] [address] * ECG 12-LEAD (08/23/2024 6:31 PM BUSINESS DEVELOPMENT RECRUITER) Narrative [facility] - 08/23/2024 6:31 PM BUSINESS DEVELOPMENT RECRUITER Sarah Mcnair MD 08/23/2024 6:33 PM ECG [...] up: further workup in the ED Sarah Mcnair MD 08/23/24 [id number] Sarah Mcnair MD ECG ORDERABLES Final Res ult [facility] from Last 3 Months Insurance Care Teams Parachute Manufacturing Supervisor Relationship Specialty Start Date End Date No, Physician PCP - General 08/23/24
== END 2024-10-25 12:53 | disposition home or self-care (01) ==
LOC: CHSIMG 12:53
PROVIDERS: PCP Family Medicine; Visit Provider Surgery
DX: R10.33 Periumbilical pain (principal)
CPT/HCPCS: 74150

== ENCOUNTER 2025-01-02 11:40 | Outpatient (CLI) | payer OTHER, SELFPAY ==
--- OUTSIDE RECORDS SUMMARY | 2025-01-02 11:42 | XMS_ITS | Clinical Summary ---
Author Organization [facility] Address [address] [place] [address] Care Team Providers Care Pipe Cleaner Name Role Phone None, Provider MD Primary [...] 10:45 PM CDT Height 170.2 cm (5' 7) 10/04/2020 10:45 PM CDT Body Mass Index [...] age to complete this [place] [address] Care Teams Pipe Cleaner Relationship Specialty Start Date End Date None, Provider, PCP - General 10/04/20
--- OUTSIDE RECORDS SUMMARY | 2025-01-02 11:42 | XMS_ITS | Clinical Summary ---
Author Organization [facility] Address [address] [place] [address] Care Team Providers Care Tin Worker Name Role Phone Unavailable Primary Care Provider Unavailabl e Source Comments [facility],non-owned Affiliates and Associated Physician Practices is amultiple site organization consisting of ambulatory clinics and hospital sitesin [place], [place] and [place]. This disclosure is being madepursuant to the Care Everywhere program and may not contain all information available regarding this patient. Last updated 18.[facility] Medications * Be aware that medications may [...] on file Legal Sex Female 5:47 PM DINNER COOK Gender Identity Not on file Sexual Orientation Not on file Last Filed Vital Signs Vital Sign Reading Time Taken Comments Blood Pressure 122/82 07/27/2017 8:23 AM DINNER COOK Pulse 73 07/27/2017 8:23 AM DINNER COOK Temperature 37 C (98.6 F) 07/27/2017 8:23 AM DINNER COOK Respiratory Rate - - Oxygen Saturation 99% 07/27/2017 8:23 AM DINNER COOK Inhaled Oxygen Concentration - - Weight 66.2 kg (146 lb) 07/27/2017 8:23 AM DINNER COOK Height 170.2 cm (5' 7) 07/27/2017 8:23 AM DINNER COOK Body Mass Index 22.87 07/27/2017 8:23 AM DINNER COOK Plan of Treatment Health Maintenance Due Date Last Done Comments LIPID TESTING 1981 MAMMOGRAM 1981 HIV SCREENING 1996 HEPATITIS C SCREENING 06/11/1999 DTAP/TDAP/TD VACCINES (1 - Tdap) 2000 HEPATITIS B VACCINE (1 of 3 - 19+ 3-dose series) 2000 HPV VACCINE (1 - 3-dose SCDM series) 2008 COVID-19 VACCINE (1 - 2023-2 5 season) 2024 DEPRESSION SCREENING 06/19/2024 INFLUENZA VACCINE (#1) 2025 ZOSTER VACCINE (1 of 2) 2031 [...]
--- OUTSIDE RECORDS SUMMARY | 2025-01-02 11:42 | XMS_ITS | Continuity of Care Document ---
Author Organization [facility] Address [address] [place] [address] [place] [address] Phone Care Team Providers Care Cephalometric Technician Name Role Phone Loy De Dios MD Unavailable Unavailable Allergies, Adverse Reactions, Alerts Substance Reaction Status Criticality No Known Allergies Active No Inform ation Medications Medication Instructions Dosage Effective Dates (start - stop) Status Comments diclofenac sodium 75 mg tablet,delayed release take 1 tablet by oral route 2 times every day 75 MG - Active Procedures Procedure Date OFFICE/OUTPATIENT VISIT, [facility] PREV VISIT, NEW, AGE 18-39 OFFICE/OUTPATIENT VISIT, [facility] Advance Directives Directive Yes / No Effective Date File Name No Information Encounters Encounter Description Practice Location Reason(s) For Visit Diagnoses Date Provider Providers Copied on Encounter [facility], [address] [place], [place], [id number], tel:[phone] [facility] No Information 8 Lanre Granado. [address] [place], [id number] , [place]. tel:[phone] Referring Provider: Loy De Dios, [address], [place], [place], [id number]. tel:[phone] OFFICE/OUTPA TIENT VISIT, EST [facility], [address] [place], [place], [id number], tel:[phone] [facility] back pain1 (chief complaint) Sacroiliitis, not elsewhere classifiedLumbagoPa resthesia of skin 8 Lanre Granado. [address], [place], [place], [id number] , [place]. tel:[phone] Referring Provider: Loy De Dios, [address], [place], [place], [id number]. tel:[phone] PREV VISIT, NEW, AGE 18-39 [facility], [address], [place], [place], [id number], [place] tel:[phone] [facility] Physical (chief complaint) Encounter for general adult medical exam w abnormal findingsSacroiliiti s, not elsewhere classifiedLumbago 201 8 Lanre Granado. [address], [place], [place], [id number] , [place]. tel:[phone] Referring Provider: Loy De Dios, [address], [place], [place], [id number]. tel:[phone] Family History Family Member Type Diagnosis Age [...]
--- OUTSIDE RECORDS SUMMARY | 2025-01-02 11:42 | XMS_ITS | Referral Summary ---
Author Organization [facility] Address [address] [place] [address] Care Team Providers Care Sample Paster Name Role Phone No, Physician Primary Care Provider [phone] Allergies Active Allergy Reactions Criticality Noted Date [...] on file Legal Sex Female 7:58 AM SR SOLUTIONS CONSULTANT Gender Identity Not on file Sexual Orientation Not on file Last Filed Vital Signs Vital Sign Reading Time Taken Comments Blood Pressure 108/74 08/23/2024 8:50 PM SR SOLUTIONS CONSULTANT Pulse 82 08/23/2024 8:50 PM SR SOLUTIONS CONSULTANT Temperature 36.5 C (97.7 F) 08/23/2024 6:19 PM SR SOLUTIONS CONSULTANT Respiratory Rate 18 08/23/2024 8:50 PM SR SOLUTIONS CONSULTANT Oxygen Saturation 96% 08/23/2024 8:50 PM SR SOLUTIONS CONSULTANT Inhaled Oxygen Concentration - - Weight 72.6 kg (160 lb) 08/23/2024 6:19 PM SR SOLUTIONS CONSULTANT Height 170.2 cm (5' 7) 08/23/2024 6:19 PM SR SOLUTIONS CONSULTANT Body Mass Index 25.06 08/23/2024 6:19 PM SR SOLUTIONS CONSULTANT Plan of Treatment Not on file Insurance [facility] HMO/O Address: [facility] [id number] [place] [address] [facility] Care Teams Sample Paster Relationship Specialty Start Date End Date No, Physician PCP - General 08/23/24
--- OUTSIDE RECORDS SUMMARY | 2025-01-02 11:42 | XMS_ITS | Clinical Summary ---
Author Organization [facility] Address [address] [place] [address] Care Team Providers Care Entrepreneurial Finance Professor Name Role Phone No, Physician Primary Care Provider [phone] Allergies Active Allergy Reactions Criticality Noted Date Comments Latex Rash Medium 08/23/2024 Active Problems Problem Noted Date Diagnosed Date Visual disturbance 06/30/2014 Overview (09/29/2016): Visual disturbance Palpitations 06/30/2014 Overview (09/29/2016): Palpitations Abnormal echocardiography 06/30/2014 Overview (09/29/2016): Abnormal echocardiogram Chest pain 06/30/2014 Overview (09/29/2016): Chest pain Anxiety 06/30/2014 Overview (09/29/2016): Anxiety Medical History Medical History Date Comments Hx [...] on file Legal Sex Female 7:58 AM BRASS WIND INSTRUMENT MAKER Gender Identity Not on file Sexual Orientation Not on file Obstetrics History Last Filed Vital Signs Vital Sign Reading Time Taken Comments Blood Pressure 108/74 08/23/2024 8:50 PM BRASS WIND INSTRUMENT MAKER Pulse 82 08/23/2024 8:50 PM BRASS WIND INSTRUMENT MAKER Temperature 36.5 C (97.7 F) 08/23/2024 6:19 PM BRASS WIND INSTRUMENT MAKER Respiratory Rate 18 08/23/2024 8:50 PM BRASS WIND INSTRUMENT MAKER Oxygen Saturation 96% 08/23/2024 8:50 PM BRASS WIND INSTRUMENT MAKER Inhaled Oxygen Concentration - - Weight 72.6 kg (160 lb) 08/23/2024 6:19 PM BRASS WIND INSTRUMENT MAKER Height 170.2 cm (5' 7) 08/23/2024 6:19 PM BRASS WIND INSTRUMENT MAKER Body Mass Index 25.06 08/23/2024 6:19 PM BRASS WIND INSTRUMENT MAKER Plan of Treatment Health Maintenance Due Date Last Done Comments Breast Cancer Screening-Mammogram 1981 Cervical Cancer Screening 1981 Depression Screening 1981 Hepatitis C Screening 1981 DTaP/Tdap/Td Vaccine (1 - Tdap) 1992 Varicella Vaccines (1 of 2 - 13+ 2-dose series) 1994 Hepatitis B Screening 1999 Regular Well Visit/Exam 18-64 1999 Pneumococcal vaccine <65 (1 of 2 - PCV) 2000 Influenza Vaccine (#1) 2025 HPV Vaccines Aged Out No longer eligi ble based on patient's age to complete this topic Insurance [employer] [facility] HMO Care Teams Entrepreneurial Finance Professor Relationship Specialty Start Date End Date No, Physician PCP - General 08/23/24
[2025-01-02 18:40] LABS: Hematocrit 40.3 % (37.0-47.0); Hemoglobin 13.1 g/dL (12.0-15.0); Immature Granulocyte Percent A 0.3 % (0-0.5); Lymphocytes Absolute Auto 1.58 K/mm3 (0.9-3.2); Mean Corpuscular HGB Conc 32.5 g/dl (32-36); Mean Corpuscular Hemoglobin 28.6 pg (26-34); Mean Corpuscular Volume 88.0 fl (80-100); Nucleated Red Blood Cells Absolute Auto 0.000 K/mm3 (0.0-0.012); Nucleated Red Blood Cells Perc 0.0 % (0.0-0.2); Platelet Count Result 251 k/mm3 (150-375); Red Blood Count 4.58 M/mm3 (4.2-5.4); White Blood Count 6.8 K/mm3 (4.5-10.0)
[2025-01-02 19:14] LABS: Alanine Aminotransferase 17 U/L (6-35); Albumin Level 4.2 g/dL (3.5-5.1); Alkaline Phosphatase 49 U/L (38-126); Anion Gap 9 mmol/L (4-12); Aspartate Amino Transferase 26 U/L (14-36); Bilirubin,Total 0.3 mg/dL (0.2-1.3); Blood Urea Nitrogen 13 mg/dL (7-17); Calcium 9.1 mg/dL (8.4-10.2); Carbon Dioxide 24 mmol/L (22-30); Chloride 107 mmol/L (98-107); Estimated Glomerular Filt Rate > 60; Glucose 89 mg/dL (65-110); Potassium 4.4 mmol/L (3.4-5.0); Sodium 140 mmol/L (137-145); Total Protein 7.4 g/dL (6.3-8.2)
[2025-01-02 19:51] LABS: Thyroid Stimulating Hormone 1.450 uIU/mL (0.465-4.680)
== END 2025-01-02 11:41 | disposition home or self-care (01) ==
LOC: ANHGOSHLAB 11:41
PROVIDERS: PCP Family Medicine; Visit Provider Family Medicine
DX: R53.83 Other fatigue (principal)
CPT/HCPCS: 36415; 80053; 84443; 85025

== ENCOUNTER 2025-03-19 07:54 | Outpatient (CLI) | payer OTHER, SELFPAY ==
--- OUTSIDE RECORDS SUMMARY | 2025-03-19 08:01 | XMS_ITS | Clinical Summary ---
Author Organization [facility] Address [address] [place] [address] Care Team Providers Care Fur Buyer Name Role Phone Jarvis Cisneros MD Primary Care Provider [phone] Allergies Active Allergy Reactions Criticality Noted Date Comments Latex Rash Medium 08/23/2024 Medications metoclopramide (REGLAN) 10 mg tablet Take 1 tablet (10 mg total) by mouth every 8 (eight) hours as needed (for nausea) 12 tablet 03/15/2025 Active Active Problems Problem Noted Date Diagnosed Date Visual disturbance 06/30/2014 Overview (09/29/2016): Visual disturbance Palpitations 06/30/2014 Overview (09/29/2016): Palpitations Abnormal echocardiography 06/30/2014 Overview (09/29/2016): Abnormal echocardiogram Chest pain 06/30/2014 Overview (09/29/2016): Chest pain Anxiety 06/30/2014 Overview (09/29/2016): Anxiety Encounters Date Type Department Care Team Description 03/15/2025 11:34 AM CDT - 03/15/2025 3:56 PM CDT Emergency [facility] Emergency Department [address] [place] [id number] Nausea (Primary Dx); Acute nonintractable headache, unspecified headache type Discharge Disposition: Discharge to home or self [...] making you feel afraid or unsafe? 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 [employer] Gender Identity Not on file Sexual Orientation Not on file Obstetrics History Last Filed Vital Signs Vital Sign Reading Time Taken Comments Blood Pressure 117/72 03/15/2025 3:53 PM CDT Pulse 80 03/15/2025 3:41 PM CDT Temperature 37 C (98.6 F) 03/15/2025 11:30 AM CDT Respiratory Rate 17 03/15/2025 2:30 PM CDT Oxygen Saturation 99% 03/15/2025 3:41 PM CDT Inhaled Oxygen Concentration - - Weight 74.8 kg (165 lb) 03/15/2025 11:30 AM CDT Height 170.2 cm (5' 7) 03/15/2025 11:30 AM CDT Body Mass Index 25.84 03/15/2025 11:30 AM CDT Plan of Treatment Health Maintenance Due Date Last Done Comments Breast Cancer Screening-Mammogram 1981 Cervical Cancer Screening 1981 Depression Screening 1981 Hepatitis C Screening 1981 Varicella Vaccines (1 of 2 - 13+ 2-dose series) 1993 Hepatitis B Screening 1999 Regular Well Visit/Exam 18-64 1999 Pneumococcal vaccine <65 (1 of 2 - PCV) 2000 HPV Vaccines (1 - 3-dose SCDM series) 2008 Influenza Vaccine (#1) 2025 DTaP/Tdap/Td Vaccine (2 - Td or Tdap) 11/17/202606/2016 Procedures Procedure Name Priority Date/Time Associated Diagnosis Comments EGFR STAT 03/15/2025 2:10 PM CDT DIFFERENTIAL AUTO STAT 03/15/2025 2:1 0 PM CDT MAGNESIUM Add-On 03/15/2025 2:10 PM CDT TROPONIN T HIGH-SENSITIVITY SERIES (BASELINE, 2HR, 4HR, 6HR) STAT 03/15/2025 2:10 PM CDT COMPREHENSIVE METABOLIC PANEL STAT 03/15/2025 2:10 PM CDT CBC WITH AUTO DIFFERENTIAL STAT 03/15/2025 2:10 PM CDT ECG 12-LEAD Routine 03/15/2025 1:[address] HEAD WO CONTRAST ED 03/15/2025 1 :47 PM CDT from Last 3 Months Results * Troponin T high-sensitivity series (baseline, 2hr, 4hr, 6hr) (03/15/2025 2:10 PM CDT) Trop T hs <6 <=14 ng/L Comment: Interpretive Data For further hscTnT resources including the diagnostic algorithm and an aid in interpretation, copy and paste this link: https://nrl.testcatalog.org/show/hsTrop Current Interpretive Data last revised 2020. Blood 03/15/2025 2:10 PM CDT 03/15/2025 2:20 PM CDT us Laura IRAHETA LAB BLOOD ORDERABLES Vicki michoacano Result [facility] [address] Department [place] [address] * eGFR (03/15/2025 2:10 PM CDT) [facility] eGFR 87 >=60 mL/min/1. 73 m2 Comment: Interpretive Data [...] interpretive data was last reviewed 2021. Blood 03/15/2025 2:10 PM CDT 03/15/2025 2:20 PM CDT us Laura IRAHETA LAB BLOOD ORDERABLES Vicki ríos Result [address] Department [place] [address] * Differential, auto (03/15/2025 2:10 PM CDT) [facility] Neutrophil abs 4.60 1.50 - 6.50 K/cumm Imm gran abs 0.01 0.00 - 0.10 K/cumm [facility] Lymphocyte abs 1.81 0.80 - 3.30 K/cumm [facility] Monocyte abs 0.47 0.20 - 0.80 K/cumm [facility] Eosinophil abs 0.16 0.00 - 0.50 K/cumm [facility] Basophil abs 0.03 0.00 - 0.10 K/cumm [facility] Neutrophil pct 65.0 % [facility] Comment: Interpretive Data Percent cell count reference ranges are not reported, since discordance with absolute values may lead to misinterpretation of CBC data. Current Interpretive Data was last revised on 2017. Imm gran pct 0.1 % [facility] Comment: Interpretive Data Percent cell count reference ranges are not reported, since discordance with absolute values may lead to misinterpretation of CBC data. Current Interpretive Data was last revised on 2017. Lymphocyte pct 25.6 % [facility] Comment: Interpretive Data Percent cell count reference ranges are not reported, since discordance with absolute values may lead to misinterpretation of CBC data. Current Interpretive Data was last revised on 2017. Monocyte pct 6.6 % [facility] Comment: Interpretive Data Percent cell count reference ranges are not reported, since discordance with absolute values may lead to misinterpretation of CBC data. Current Interpretive Data was last revised on 2017. Eosinophil pct 2.3 % [facility] Comment: Interpretive Data Percent cell count reference ranges are not reported, since discordance with absolute values may lead to misinterpretation of CBC data. Current Interpretive Data was last revised on 2017. Basophil pct 0.4 % [facility] Comment: Interpretive Data Percent cell count reference ranges are not reported, since discordance with absolute values may lead to misinterpretation of CBC data. Current Interpretive Data was last revised on 2017. Blood 03/15/2025 2:10 PM CDT 03/15/2025 2:20 PM CDT us Laura IRAHETA LAB BLOOD ORDERABLES Vicki l Result [facility] [address] [facility] Department [place] [address] * CBC with auto differential (03/15/2025 2:10 PM CDT) WBC 7.08 3.80 - 9.90 K/cumm Hgb 13.5 11.9 - 15.5 g/dL [facility] Hct 40.2 35.6 - 45.5 % [facility] Plt 279 150 - 400 K/cumm [facility] MPV 10.0 9.1 - 12.3 fL [facility] RBC 4.59 3.90 - 5.20 M/cumm [facility] MCV 87.6 81.3 - 96.4 fL [facility] MCH 29.4 27.1 - 33.3 pg [facility] MCHC 33.6 32.3 - 35.7 g/dL [facility] RDW CV 13.1 11.1 - 14.9 % [facility] RDW SD 42.2 35.7 - 48.1 fL [facility] NRBC abs 0.00 0.00 - 0.01 K/cumm [facility] Blood 03/15/2025 2:10 PM CDT 03/15/2025 2:20 PM CDT Laura IRAHETA LAB BLOOD ORDERABLES Vicki l Result Performing Organization Address [facility] Co de Phone Number [address] of [employer] [place], [place] [phone] * Magnesium (03/15/2025 2:10 PM CDT) [facility] Magnesium 2.0 1.4 - 2.5 mg/dL Blood 03/15/2025 2:10 PM CDT 03/15/2025 2:20 PM CDT Laura IRAHETA LAB BLOOD ORDERABLES Vicki l Result Performing Organization Address [facility]/ZIP Co de Phone Number [address] [phone] * Comprehensive metabolic panel (03/15/2025 2:10 PM CDT) [facility] Sodium 140 135 - 145 mmol/L Potassium, pl 3.7 3.3 - 4.9 mmol/L [facility] Chloride 104 97 - 110 mmol/L [facility] CO2 24 22 - 32 mmol/L [facility] Anion gap 13 2 - 15 mmol/L [facility] BUN 13 6 - 25 mg/dL [facility] Creatinine 0.85 0.60 - 1.10 mg/dL [facility] Glucose 89 70 - 199 mg/dL [facility] Comment: Interpretive Data Fasting glucose >/= 126 [...] classification and Diagnosis of Diabetes Diabetes Care 2021; 46: S19-S40. Current interpretive data was last revised 2022. Calcium 9.8 8.5 - 10.3 mg/dL [facility] Bilirubin, total 0.3 0.1 - 1.2 mg/dL [facility] Protein, pl 7.6 6.5 - 8.5 g/dL [facility] Albumin 4.4 3.5 - 5.0 g/dL [facility] Alk phos 57 40 - 130 Units/L [facility] ALT 18 7 - 45 Units/L [facility] AST 19 10 - 45 Units/L [facility] Blood 03/15/2025 2:10 PM CDT 03/15/2025 2:20 PM CDT Laura IRAHETA LAB BLOOD ORDERABLES Vicki l Result [facility] [address] [facility] Department [place] [address] * ECG 12 lead (03/15/2025 1:59 PM CDT) 03/15/2025 1:59 PM CDT Narrative [facility] - 03/16/2025 1:52 AM CDT Vent Rate: 84 bpm RR Interval: 713 msec FL Interval: 136 msec QRS Duration: 97 msec QT Interval: 379 msec QTC Interval: 420 msec P-R-T [place]: -85 - -79 - 268 degrees IMPRESSION: SINUS RHYTHM WITH SHORT FL INTERVAL POSSIBLE RIGHT VENTRICULAR CONDUCTION DELAY LEFT ANTERIOR FASCICULAR BLOCK MODERATE T-WAVE ABNORMALITY, CONSIDER INFERIOR ISCHEMIA ABNORMAL ECG Electronically Signed By: Jarvis Peterson DO, [facility] us Laura Grace Aubrie IRAHETA ECG ORDERABLES Final Res ult [facility] * CT Head WO Contrast (03/15/2025 1:47 PM CDT) Anatomical Region Laterality Modality Head and Neck N/A Computed Tomogra phy 03/15/2025 1:57 PM CDT Impressions 03/15/2025 1:57 PM CDT 1. No acute intracranial change. Electronically signed by: Carol Hamm M.D. Narrative 03/15/2025 1:57 PM CDT EXAMINATION: NONCONTRAST HEAD CT DATE: 03/15/2025 1:35 PM HISTORY: Headache, increasing frequency or severity TECHNIQUE: Axial CT images of the brain was performed from the skull base to the vertex. COMPARISON: 08/23/2024 and 09/08/2004 FINDINGS: No acute intracranial hemorrhage mass effect or evidence of early ischemia. Cisterns are preserved. No disproportional dilatation of the ventricles and sulci. Visualized orbits are symmetrical. No acute fracture. Mastoid air cells are well aerated. Visualized sinuses are clear.. Procedure Note Carol Hamm MD - 03/15/2025 EXAMINATION: NONCONTRAST HEAD CT DATE: 03/15/2025 1:35 PM HISTORY: Headache, increasing frequency or severity TECHNIQUE: Axial CT images of the brain was performed from the skull base to the vertex. COMPARISON: 08/23/2024 and 09/08/2004 FINDINGS: No acute intracranial hemorrhage mass effect or evidence of early ischemia. Cisterns are preserved. No disproportional dilatation of the ventricles and sulci. Visualized orbits are symmetrical. No acute fracture. Mastoid air cells are well aerated. Visualized sinuses are clear.. IMPRESSION: 1. No acute intracranial change. Electronically signed by: Carol Hamm M.D. Laura IRAHETA IMG CT PROCEDURES Final R esult from Last 3 Months Insurance Care Teams Fur Buyer Relationship Specialty Start Date End Date Jarvis Cisneros MD [address] [place] [address] [place] [address] PCP - General Family Medicine 03/15/25
== END 2025-03-19 07:55 | disposition home or self-care (01) ==
LOC: ANHBWCAUD 07:54
PROVIDERS: PCP Family Medicine; Visit Provider Otolaryngology
DX: H69.93 Unspecified Eustachian tube disorder, bilateral (principal)
CPT/HCPCS: 92557; 92567